=== PATIENT | female | born 1975 | race Two or more races ===

== ENCOUNTER 2020-04-07 17:31 | Emergency (ER) | payer OTHER ==
[~2020-04-07] VITALS: Ht 170.2 cm; Wt 95.2 kg
[~2020-04-07 17:31] MED LIST: HYDR-3240 PO; IBUP-1222 PO
[2020-04-07 18:10] LABS: BASOPHILS # (AUTO) 0.06 x10^3/uL (0-0.1); BASOPHILS % (AUTO) 1 % (0-1); EOSINOPHILS # (AUTO) 0.01 x10^3/uL (0-0.4); EOSINOPHILS % (AUTO) 0 % (1-7); LYMPHOCYTES # (AUTO) 1.14 x10^3/uL (1-3.4); LYMPHOCYTES % (AUTO) 18 % (22-44); MD NO; MEAN CORPUSCULAR HEMOGLOBIN 29.2 pg (27.0-34.8); MEAN CORPUSCULAR HGB CONC 33.4 g/dL (32.4-35.8); MONOCYTES # (AUTO) 0.32 x10^3/uL (0.2-0.8); MONOCYTES % (AUTO) 5 % (2-9); NEUTROPHILS # (AUTO) 4.76 x10^3/uL (1.8-6.8); NEUTROPHILS % (AUTO) 76 % (42-75); PLATELET COUNT 331 x10^3/uL (130-400); RED BLOOD COUNT 4.94 x10^6/uL (3.82-5.3); RED CELL DISTRIBUTION WIDTH 15.9 % (9.6-15.2)
[2020-04-07 18:24] LABS: ANION GAP 11 mmol/L (5-15); CALCIUM 9.1 mg/dL (8.5-10.1); CHLORIDE 108 mmol/L (98-107)
[2020-04-07 18:30] LABS: ALANINE AMINOTRANSFERASE 51 U/L (12-78); ALKALINE PHOSPHATASE 69 U/L (45-117); BILIRUBIN,TOTAL 0.5 mg/dL (0.2-1.0); CREATININE 0.67 mg/dL (0.55-1.02); TOTAL PROTEIN 8.4 g/dL (6.4-8.2)
--- NOTE | 2020-04-07 20:00 | NUR ---
Pt back to room, per charge Antonia STOVER older daughter may stay at bedside as long as she remains in the room.
[2020-04-07] MEDS ORDERED: POTASSIUM CHLORIDE 20 MEQ TAB.ER.PRT ONE (20:10)
[2020-04-07] MEDS ORDERED: NS + 40MEQ KCL 1,000 ML IV ONE (20:10)
[2020-04-07] MEDS ORDERED: POTASSIUM CHLORIDE 40 MEQ in SODIUM CHLORIDE 0.9% 1,000 ML IV ONE (20:11)
--- NOTE | 2020-04-07 20:28 | NUR ---
SOB AT HOME AND WEAK, PT REPORTS SHE IS UNABLE TO LAY FLAT AND UNABLE BREATHE. PT REPORTS STARTED LAST NIGHT. DAUGHTER IS + FOR COVID AND WAS EXPOSED TO HER. Pt also has been taking her husbands TB medicine becasue he has TB. Pt reports she took them because they thought it would protect her from COVID. Pt educated on this. Pt placed in bed on vitals monitor and pt has iv with lytes running and given oral potassium. Pt to have a CTA. Awaiting further orders.
[2020-04-07] MEDS ORDERED: POTASSIUM CHLORIDE 20 MEQ TAB.ER.PRT PO ONE (20:30)
--- NOTE | 2020-04-07 21:00 | NUR ---
IV potassium started.
[2020-04-07] MEDS ORDERED: OMNIPAQUE 350 MG/ML, 75ML BOTTLE ONE (21:02)
--- NOTE | 2020-04-07 21:30 | NUR ---
pt back from CT
--- NOTE | 2020-04-07 23:40 | NUR ---
Patient/Caregiver given discharge instructions and they have confirmed that they understand the instructions. Patient ambulatory with steady gait. Informed to self isolate for 14 days, we will notify patient once her result for covid-19 is back. Verbalized they left a good call back number.
[2020-04-07 23:42] VITALS: BP 135/74
== END 2020-04-07 23:45 ==
LOC: ED 20:51
DX: U07.1 COVID-19 (principal); R06.00 Dyspnea, unspecified; R94.31 Abnormal electrocardiogram [ECG] [EKG]; R07.89 Other chest pain; R05 Cough
CPT/HCPCS: 36415; 71045; 71275; 80053; 85025; 87635; 93005; 96365; 96366; 99285; J3480; J7030; Q9967